=== PATIENT | female | born 1990 | race Caucasian/White ===

== ENCOUNTER 2016-08-07 10:51 | Emergency (ER) | payer OTHER ==
[2016-08-07] MEDS ORDERED: Ondansetron ODT TAB* 4 MG PO ONE (11:49)
[2016-08-07] MEDS ORDERED: HYDROcodone/ACETAMIN 5-325 MG* 1 TAB PO ONE (11:50)
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
--- NOTE | 2016-08-07 12:23 | RAD ---
HISTORY: ] A very COMPARISONS: None TECHNIQUE: Multiple contiguous axial CT scans were obtained of the head without intravenous contrast. FINDINGS: HEMORRHAGE/INFARCT: There is no hemorrhage or acute infarct. MASSES/SHIFT: There is no mass or shift. EXTRA-AXIAL SPACES: There are no extra-axial fluid collections. SULCI AND VENTRICLES: The sulci and ventricles are normal in size and position for the patient's stated age. CEREBRUM: There are no focal parenchymal abnormalities. BRAINSTEM: There are no focal parenchymal abnormalities. CEREBELLUM: There are no focal parenchymal abnormalities. VESSELS: The vessels are grossly normal. PARANASAL SINUSES: There is mucosal thickening of ethmoid air cells ORBITS: The orbits are unremarkable. BONES AND SOFT TISSUE: No bone or soft tissue abnormalities are noted. OTHER: None IMPRESSION: NO ACUTE INTRACRANIAL PATHOLOGY.
[2016-08-07 13:32] VITALS: BP 116/66
== END 2016-08-07 13:36 | disposition home or self-care (01) ==
LOC: UCEAST 10:51
DX: S06.0X9A Concussion with loss of consciousness of unspecified duration, initial encounter (principal); W03.XXXA Other fall on same level due to collision with another person, initial encounter; J45.909 Unspecified asthma, uncomplicated
CPT/HCPCS: 70450; 99213; A9270-GY; G0463